=== PATIENT | female | born 1990 | race Caucasian/White ===

== ENCOUNTER 2022-09-26 00:37 | Emergency (ER) | payer SELFPAY ==
[2022-09-26 02:20] LABS: #Eosinphils 0.1 10x3/uL (0.0-0.5); #Monocytes 0.6 10x3/uL (0.0-1.1); #Neutrophils 7.5 10x3/uL (1.5-8.4); %Basophils 0.4 % (0.0-2.0); %Eosinophils 1.2 % (0.0-6.0); %Lymphocytes 23.9 % (18.0-47.0); %Monocytes 5.2 % (0.0-10.0); %Neutrophils 68.9 % (40.0-75.0); Hemoglobin 11.3 g/dL (12.0-15.5); Mean Corpuscular Hemoglobin 30.1 pg (27.0-33.0); Mean Corpuscular Volume 88.5 fl (81.6-98.3); Mean Platelet Volume 11.7 fl (7.4-10.4); Platelet Count 194 10x3/uL (150-450); RBC Distribution Width 12.6 % (11.5-14.5); Red Blood Cell (RBC) Count 3.75 10x6/uL (3.90-5.03); White Blood Cell (WBC) Count 10.9 10x3/uL (3.5-10.5)
== END 2022-09-26 03:43 | disposition home or self-care (01) ==
LOC: CSHERS 00:37
DX: O20.0 Threatened abortion (principal); Z3A.12 12 weeks gestation of pregnancy
CPT/HCPCS: 76856; 84702; 85025

== ENCOUNTER 2023-03-21 09:14 | Inpatient (IN) | payer BC ==
[2023-03-21] MEDS ORDERED: HYDROcodone/Acetaminophen 5/325 mg Tablet PO PRN ×4 (09:25→18:50)
[2023-03-21] MEDS ORDERED: fentaNYL 50 mcg/mL 1 mL Vial SLOW IVP PRN (09:25)
[2023-03-21] MEDS ORDERED: Diphenoxylate HCl/Atropine Tablet PO PRN ×2 (09:25)
[2023-03-21] MEDS ORDERED: Lidocaine 1% (PF) 30 ML VIAL SC PRN (09:25)
[2023-03-21] MEDS ORDERED: Misoprostol 200 MCG TAB PR PRN (09:25)
[2023-03-21] MEDS ORDERED: Acetaminophen 500 MG TAB PO PRN (09:25)
[2023-03-21] MEDS ORDERED: Ibuprofen 800 MG TAB PO PRN (09:25)
[2023-03-21] MEDS ORDERED: hydrALAZINE 20 MG/ML VIAL SLOW IVP PRN ×2 (09:25→18:50)
[2023-03-21] MEDS ORDERED: Docusate 100 MG CAP PO PRN (09:25)
[2023-03-21] MEDS ORDERED: Carboprost 250 MCG/ML AMP IM PRN (09:25)
[2023-03-21] MEDS ORDERED: Promethazine HCl 25 MG/ML VIAL IM PRN ×2 (09:25→14:00)
[2023-03-21] MEDS ORDERED: Ondansetron PF 4 MG/2 ML Vial IVP PRN ×3 (09:25→18:50)
[2023-03-21] MEDS ORDERED: Lactated Ringer's 1,000 ML IV SCH (09:30)
[2023-03-21] MEDS ORDERED: Oxytocin 30 units/NS 500 ML 500 ML IV SCH ×2 (09:30→19:00)
[2023-03-21 10:32] LABS: Hemoglobin 11.3 g/dL (12.0-15.5); Mean Corpuscular HGB CONC 33.2 g/dL (32.0-36.0); Mean Corpuscular Hemoglobin 28.7 pg (27.0-33.0); Mean Corpuscular Volume 86.3 fl (81.6-98.3); Mean Platelet Volume 12.5 fl (7.4-10.4); Platelet Count 181 10x3/uL (150-450); RBC Distribution Width 12.1 % (11.5-14.5); Red Blood Cell (RBC) Count 3.94 10x6/uL (3.90-5.03); White Blood Cell (WBC) Count 12.1 10x3/uL (3.5-10.5)
[2023-03-21 11:00] LABS: Syphilis Antibody Nonreactive (Nonreactive); Syphilis Antibody Index 0.03 S/CO (<1.00 Non-Reactive)
[2023-03-21 11:01] LABS: HBSAg Index 0.12 S/CO (0-0.99); Hep B Surf Ag - L&D Non-Reactive S/CO (NonReactive)
[2023-03-21] MEDS ORDERED: fentaNYL/Ropivacaine Epidural 100 ML ONE (11:22)
[2023-03-21 11:51] LABS: HIV (1/2) Antibody/Antigen Non-Reactive (NonReactive); HIV 1/2 INDEX 0.17 S/CO (<1.00)
[2023-03-21] MEDS ORDERED: Lactated Ringer's 500 ML IV PRN (14:00)
[2023-03-21] MEDS ORDERED: fentaNYL 2 mcg/Ropivacaine 0.2% Epidural 100 ML CADD EPIDURAL SCH (14:00)
[2023-03-21] MEDS ORDERED: ePHEDrine Sulfate 50 MG/10 ML VIAL SLOW IVP PRN (14:00)
[2023-03-21] MEDS ORDERED: Naloxone HCl 0.4 mg/ml Vial IVP PRN ×2 (14:00)
[2023-03-21] MEDS ORDERED: Moisturizing Cream (Eucerin) 113 GM JAR TOP PRN (14:00)
[2023-03-21] MEDS ORDERED: Communication Order-Pharmacy FS SCH (14:00)
[2023-03-21] MEDS ORDERED: Acetaminophen 325 MG TAB PO PRN (14:00)
[2023-03-21] MEDS ORDERED: diphenhydrAMINE 50 MG/ML VIAL IVP PRN (14:00)
[2023-03-21] MEDS ORDERED: Misoprostol 200 MCG TAB VAG PRN (18:50)
[2023-03-21] MEDS ORDERED: Preparation H Ointment 28 GM TUBE PR PRN (18:50)
[2023-03-21] MEDS ORDERED: Bisacodyl 10 MG SUPP PR PRN (18:50)
[2023-03-21] MEDS ORDERED: Zolpidem Tartrate 5 MG TAB PO PRN (18:50)
[2023-03-21] MEDS ORDERED: Lanolin Ointment 7 GM TUBE TOP PRN (18:50)
[2023-03-21] MEDS ORDERED: diphenhydrAMINE 25 MG CAP PO PRN (18:50)
[2023-03-21] MEDS ORDERED: Milk Of Magnesia 30 ML UDCUP PO PRN (18:50)
[2023-03-21] MEDS ORDERED: Boostrix 0.5 ML (Tdap) VIAL (>/=7 yrs of age) IM ONE (18:50)
[2023-03-21] MEDS ORDERED: Benzocaine-Menthol 82.5 ML CAN TOP PRN (18:50)
[2023-03-21] MEDS: Docusate 100 MG CAP PO SCH (22:23)
[2023-03-21] MEDS: Ibuprofen 800 MG TAB PO SCH (22:23)
[2023-03-22 04:18] LABS: Hematocrit 28.7 % (34.9-44.5); Hemoglobin 9.5 g/dL (12.0-15.5); Mean Corpuscular HGB CONC 33.1 g/dL (32.0-36.0); Mean Corpuscular Hemoglobin 28.7 pg (27.0-33.0); Mean Corpuscular Volume 86.7 fl (81.6-98.3); Mean Platelet Volume 12.4 fl (7.4-10.4); Platelet Count 165 10x3/uL (150-450); RBC Distribution Width 12.3 % (11.5-14.5); Red Blood Cell (RBC) Count 3.31 10x6/uL (3.90-5.03); White Blood Cell (WBC) Count 16.2 10x3/uL (3.5-10.5)
[2023-03-22] MEDS: Ibuprofen 800 MG TAB PO SCH ×3 (06:09→21:55)
[2023-03-22] MEDS: Docusate 100 MG CAP PO SCH ×2 (07:58→21:56)
[2023-03-22] MEDS: Prenatal Vitamin 1 TAB PO SCH (07:58)
[2023-03-22] MEDS: Ferrous Sulfate 325 MG TAB PO SCH ×2 (07:58→17:55)
[2023-03-22] MEDS ORDERED: Bupivacaine 0.25% HCL 30 ML VIAL ONE (19:09)
[2023-03-23] MEDS: Ibuprofen 800 MG TAB PO SCH (05:31)
[2023-03-23 08:11] VITALS: BP 126/67; TEMP 98.1
[2023-03-23] MEDS: Docusate 100 MG CAP PO SCH (08:39)
[2023-03-23] MEDS: Ferrous Sulfate 325 MG TAB PO SCH (08:39)
[2023-03-23] MEDS: Prenatal Vitamin 1 TAB PO SCH (08:39)
== END 2023-03-23 12:30 | disposition home or self-care (01) | DRG 807 ==
LOC: CSHLD 09:14 → CSHPP 22:15
PROVIDERS: ADMIT Obstetrics & Gynecology; ATTEND Obstetrics & Gynecology
PROC: 10E0XZZ Delivery of Products of Conception, External Approach (ICD-10-PCS; principal; 2023-03-21)
PROC: 10907ZC Drainage of Amniotic Fluid, Therapeutic from Products of Conception, Via Natural or Artificial Opening (ICD-10-PCS; 2023-03-21)
DX: O24.429 Gestational diabetes mellitus in childbirth, unspecified control (principal); Z37.0 Single live birth; Z3A.37 37 weeks gestation of pregnancy
CPT/HCPCS: 36415; 51702; 85027; 86780; 86850; 86900; 86901; 87340; 87389; J2590; S0020